=== PATIENT | female | born 2000 ===

== ENCOUNTER → 2024-08-04 11:38 | Outpatient (CLI) | payer OTHER ==
[2024-08-04 12:32] LABS: HEMATOCRIT 32.7 % (36.0-45.00); HEMOGLOBIN 10.9 g/dL (12.0-15.00); MEAN CELL VOLUME 86.3 fL (80.00-100.00); MEAN CORPUSCULAR HEMOGLOBIN 28.7 pg (27.00-32.0); MEAN CORPUSCULAR HGB CONC 33.2 g/dl (32.0-36.0); PLATELET COUNT 304 K/uL (150-450); RED BLOOD COUNT 3.79 M/uL (4.00-6.00); RED CELL DISTRIBUTION WIDTH 15.8 % (11.5-14.5)
[2024-08-04 13:01] LABS: URINE APPEARANCE Clear; URINE BILIRRUBIN Negative (NEGATIVE); URINE BLOOD Large; URINE COLOR Yellow; URINE GLUCOSE Negative (NEGATIVE); URINE KETONE Negative (NEGATIVE); URINE LEUKOCYTE Trace; URINE NITRATE Negative; URINE PROTEIN Negative (NEGATIVE); URINE UROBILINOGEN 0.2 E.U./dl
[2024-08-04 13:02] LABS: URINE BACTERIA 338.9 uL (0.0-1933); URINE EPITHELIAL CELLS 12.8 uL (0.0-38.8); URINE RBC 759.6 uL (0.0-20.8); URINE WBC 16.2 uL (0.0-23.2)
[2024-08-04 13:04] LABS: ALBUMIN 3.5 gm/dL (3.4-5.0); BILIRUBIN TOTAL 0.26 mg/dL (0.3-1.2); CALCIUM 9.2 mg/dL (8.5-10.1); CREATININE SERUM 0.7 mg/dL (0.55-1.02); GFR 102.8; GLOBULINA 3.3 G/DL (2.4-3.5); POTASSIUM 3.59 mEq/L (3.5-5.1); TOTAL PROTEIN 6.8 gm/dL (6.4-8.2)
[2024-08-04 13:11] LABS: URINE CAST 0.15 uL (0.0-1.40)
== END | disposition home or self-care (01) ==
LOC: LAB 11:38
PROVIDERS: ATTEND Obstetrics & Gynecology
DX: Z39.1 Encounter for care and examination of lactating mother (principal)

== ENCOUNTER 2024-08-26 04:00 | Outpatient (CLI) | payer OTHER | END 2024-08-26 04:15 | disposition home or self-care (01) | LOC: PPH VACUNA 04:00 | PROVIDERS: ATTEND Emergency Medicine Pediatric Emergency Medicine | DX: Z23 Encounter for immunization (principal) ==